=== PATIENT | male | born 1955 | race Caucasian/White ===

== ENCOUNTER 2022-11-06 07:03 | Observation (INO) | payer MEDICARE ==
[~2022-11-06] VITALS: Ht 182.9 cm; Wt 77.1 kg
[2022-11-06] VITALS (10 sets, daily range): BP systolic 135–178; BP diastolic 51–114
--- NOTE | 2022-11-06 07:07 | NUR ---
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
[2022-11-06] MEDS ORDERED: NS 1000ML 1,000 ML ONE (07:22)
[2022-11-06] MEDS ORDERED: ADENOSINE IV ONE (07:23)
[2022-11-06] MEDS ORDERED: LOPRESSER ONE (07:31)
[2022-11-06] MEDS ORDERED: TORADOL IV STA (07:36)
[2022-11-06] MEDS ORDERED: ADENOSCAN IV STA (07:36)
[2022-11-06] MEDS ORDERED: NS 1000ML 1,000 ML IV STA (07:36)
--- NOTE | 2022-11-06 07:42 | ER.PDOC ---
General Chief Complaint: Requesting Medical Care Stated Complaint: ABD PAIN Time seen by MD: 07:40 Source: patient Exam Limitations: no limitations History of Present Illness Initial Comments Abdominal pain since this morning. No nausea or vomiting. No fever or chills. Severity/Quality: moderate, sharpness Radiation: no radiation Associated Symptoms: denies symptoms Exacerbated by: nothing Relieved By: nothing Allergies: Coded Allergies: ciprofloxacin (Unverified Allergy, Unknown, 11/06/22) Home Meds Unable to Obtain Active Prescriptions or Reported Meds Vital Signs First Vital Signs Date Time Temp Pulse Resp B/P (MAP) Pulse Ox O2 Delivery O2 Flow Rate FiO2 11/06/22 07:07 97.9 157 20 11/06/22 07:07 96 11/06/22 07:07 150/92 (111) Room Air* 0 21 Last Vital Signs Date Time Temp Pulse Resp B/P (MAP) Pulse Ox O2 Delivery O2 Flow Rate FiO2 11/06/22 11:11 97.9 87 20 140/85 (103) 96 Room Air* 0 21 Past Medical History Medical History: no pertinent history Family History Significant Family History: no pertinent family hx Social History Smoking: non-smoker Alcohol Use: none Drug Use: none Constitutional: no symptoms reported EENTM: no symptoms reported Respiratory: no symptoms reported Cardiovascular: no symptoms reported Gastrointestinal: see HPI All Other Systems: Reviewed and Negative Physical Exam General Appearance: No Apparent Distress, WD/WN Neck: Non-Tender, Full Range of Motion, Supple, Normal Inspection Respiratory: chest non-tender, lungs clear, normal breath sounds, no respiratory distress, no accessory muscle use Cardiovascular: Normal Peripheral Pulses, Regular Rate, Rhythm, No Edema, No Gallop, No JVD, No Murmur Gastrointestinal: No Organomegaly, No Pulsatile Mass, Hyperactive bowel sounds, Guarding, Tenderness (RLQ) Back: Normal Inspection, No CVA Tenderness, No Vertebral Tenderness Extremities: Normal Range of Motion, Non-Tender, Normal Inspection, No Pedal Edema, No Calf Tenderness, Normal Capillary Refill, Pelvis Stable 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 (11/06/22 07:36) PT (11/06/22 07:36) Ct Abd/Pel With Iv Contrast (11/06/22 07:36) Partial Thromboplastin Time. (11/06/22 07:36) Urinalysis (11/06/22 07:36) Troponin I High Sensitivity (11/06/22 07:36) Creatine Kinase (11/06/22 07:36) 0.9 % Sodium Chloride (Ns 1000ml) (11/06/22 07:36) Ketorolac Tromethamine (Toradol) (11/06/22 07:36) Adenosine (Adenoscan) (11/06/22 07:36) EKG (11/06/22 07:45) EKG (11/06/22 07:45) Ketorolac Tromethamine (Toradol) (11/06/22 07:50) Urine Culture (11/06/22 UNK) Metoprolol Tartrate (Lopresser) (11/06/22 10:33) Vital Signs Date Time Temp Pulse Resp B/P (MAP) Pulse Ox O2 Delivery O2 Flow Rate FiO2 11/06/22 11:11 97.9 87 20 140/85 (103) 96 Room Air* 0 21 11/06/22 10:35 99 171/99 11/06/22 09:40 97.9 99 20 171/99 (123) 96 Room Air* 0 21 11/06/22 08:22 97.9 98 20 178/84 (115) 96 Room Air* 0 21 11/06/22 07:26 97.9 100 20 151/114 (126) 96 Room Air* 0 21 11/06/22 07:07 97.9 157 20 150/92 (111) 96 Room Air* 0 21 11/06/22 07:07 97.9 157 20 96 11/06/22 07:07 97.9 157 20 Administered Medications Medications (Trade) Dose Ordered Sig/Marisabel Route PRN Reason Start Time Stop Time Status Last Admin Dose Admin Adenosine (Adenoscan) 6 mg STAT STAT IV 11/06/22 07:36 11/06/22 07:40 DC 11/06/22 07:23 6 MG Ketorolac Tromethamine (Toradol) 30 mg STAT STAT IV 11/06/22 07:36 11/06/22 07:40 DC 11/06/22 07:49 30 MG Metoprolol Tartrate (Lopresser) 5 mg STAT STAT IVP 11/06/22 10:33 11/06/22 10:34 DC 11/06/22 10:35 5 MG Sodium Chloride 1,000 ml @ 1,200 mls/hr Q50M STAT IV 11/06/22 07:36 11/06/22 08:25 DC 11/06/22 07:23 1,200 MLS/HR Laboratory Tests Test 11/06/22 00:00 11/06/22 07:20 Urine Collection Type RANDOM Urine Color YELLOW Urine Appearance CLEAR Urine Bilirubin NEGATIVE (NEGATIVE) Urine Ketones NEGATIVE (NEGATIVE) Urine Specific [place] 1.015 (1.005-1.030) Urine pH 6.5 (4.5-8.0) Urine Protein 1+ (NEGATIVE) H Urine Urobilinogen 0.2 E.U./dL (0.2) Urine Nitrate NEGATIVE (NEGATIVE) Urine Leukocyte Esterase NEGATIVE (NEGATIVE) Urine Glucose (Auto)(UA) NEGATIVE (NEGATIVE) Urine Blood NEGATIVE (NEGATIVE) Urine RBC NONE SEEN RBC/HPF (NONE Urine WBC 5-10 WBC/HPF (0-2) H Urine Squamous Epithelial Cells FEW (<=FEW) Urine Bacteria FEW (NONE SEEN) H Urine Yeast RARE (NONE SEEN) White Blood Count 13.2 10^3/uL (4.5-11.0) H Red Blood Count 4.44 10^6/uL (4.50-5.90) L Hemoglobin 14.6 g/dL (13.9-16.3) Hematocrit 44.0 % (37.0-53.0) Mean Corpuscular Volume 99.1 fL (78-100) Mean Corpuscular Hemoglobin 32.9 pg (26-34) Mean Corpuscular Hemoglobin Concent 33.2 g/dL (33-36.5) Red Cell Distribution Width 13.1 % (11.5-14.5) Platelet Count 367 10^3/uL (150-400) Mean Platelet Volume 8.6 fL (7.8-11.0) Neutrophils (%) (Auto) 60.8 % (41.0-85.0) Lymphocytes (%) (Auto) 27.5 % (24.0-44.0) Monocytes (%) (Auto) 7.0 % (5.0-12.0) Neutrophils # (Auto) 8.0 10^3/uL (1.8-7.7) H Lymphocytes # (Auto) 3.63 10^3/uL1 (1.0-4.8) Monocytes # (Auto) 0.9 10^3/uL (0.3-0.8) H Absolute Immature Granulocyte (auto 0.07 10^3 u/L (0-2) Absolute Eosinophils (auto) 0.5 10^3/uL (0.0-0.2) H Immature Granulocytes % 0.50 % (0.00-0.50) Eosinophils % 3.9 % (0.0-5.0) Basophils % 0.3 % (0.0-0.2) H Basophils # 0.0 10^3/uL (0.0-0.1) Prothrombin Time 9.3 SEC (9.1-11.5) INR 0.9 Activated Partial Thromboplast Time 23.8 SEC (22.5-33.1) Sodium Level 136 mmol/L (132-145) Potassium Level 4.4 mmol/L (3.6-5.2) Chloride Level 102.0 mmol/L (96-109) Carbon Dioxide Level 29.4 mmol/L (20.0-32) Anion Gap 9.0 Blood Urea Nitrogen 26 mg/dL (7-18) H Creatinine 1.44 mg/dL (0.59-1.40) H Estimated GFR () 59.6 (>/=60) Est GFR (CKD-EPI)(Non-Afr Gambian) 49.2 (>/=60) BUN/Creatinine Ratio 18.0 Glucose Level 125 mg/dL (70-110) H Calcium Level 8.8 mg/dL (8.4-10.5) Total Bilirubin 0.4 mg/dL (0.2-1.0) Aspartate Amino Transferase (AST) 6 U/L (0-35) Alanine Aminotransferase (ALT) 22 U/L (12-78) Alkaline Phosphatase 120 U/L (50-136) Total Creatine Kinase 65 U/L (39-308) Troponin I High Sensitivity 13 ng/L (0-75) Total Protein 7.4 g/dL (6.4-8.2) Albumin 3.9 g/dL (3.4-5.0) Globulin 3.5 Albumin/Globulin Ratio 1.114 Lipase 21 U/L (16-77) Progress Progress CT abdomen/pelvis: Findings of mild bilateral hydronephrosis and bilateral hydroureters right greater than left with marked distention of the urinary bladder. The prostate is enlarged. 2. Mildly displaced acute appearing fractures are seen of the left transverse processes of L1 and L2. 3. A moderate compression fracture is seen of L5 age indeterminate. Further evaluation can be performed with MRI exam. 4. Indeterminate 1.8 cm x 1.5 cm left adrenal soft tissue mass. Further evaluation can be performed with MRI exam of the adrenal glands. Urinalysis see show WBC 5-10 and few bacteria, troponin normal, glucose 125, BUN 26, creatinine 1.44, rest of chemistry is unremarkable. Lipase 21. WBC 13.2. Patient received adenosine and metoprolol. Lanier catheter inserted and about 1200 cc of urine drained into the urine bag. EKG/XRAY/CT/US EKG: nonspecific ST T wave chg EKG Comments: HR 157, SVT #2 EKG: NSR EKG Comments: HR 106, sinus tachycardia ER DEPART Departure Time of Disposition: 11:22 Disposition: 09 ADMITTED INPATIENT Impression: Primary Impression: SVT (supraventricular tachycardia) Additional Impressions: Acute urinary retention Benign prostatic hyperplasia Acute renal failure Adrenal mass, left Condition: Improved Referrals: PCP,UNKNOWN (PCP) PRIMARY CARE PROVIDER Scripts Unable to Obtain Active Prescriptions or Reported Meds Comments Admitted to Dr. Best, spoke with Dr. Fields who will see him as an out patient. Duration or Time Spent with Pa: 60 min Critical Care Note Total Time (mins): 60 Problem Qualifiers Additional Impressions: Benign prostatic hyperplasia Lower urinary tract symptom presence: symptoms present Lower urinary tract symptom detail: urinary retention Qualified Codes: N40.1 - Benign prostatic hyperplasia with lower urinary tract symptoms; R33.8 - Other retention of urine Acute renal failure Acute renal failure type: unspecified Qualified Codes: N17.9 - Acute kidney failure, unspecified MOE LOPEZ MD Nov 06, 2022 07:42
[2022-11-06] MEDS ORDERED: TORADOL ONE (07:50)
[2022-11-06 07:52] LABS: BASOPHIL % 0.3 % (0.0-0.2); EOSINOPHIL # 0.5 10^3/uL (0.0-0.2); EOSINOPHIL % 3.9 % (0.0-5.0); LYMPHOCYTES # 3.63 10^3/uL1 (1.0-4.8); LYMPHOCYTES % 27.5 % (24.0-44.0); MEAN CORP HGB 32.9 pg (26-34); MONOCYTES # 0.9 10^3/uL (0.3-0.8); NEUTROPHILS % 60.8 % (41.0-85.0); PLATELET COUNT 367 10^3/uL (150-400); RED CELL DISTRIBUTION WIDTH 13.1 % (11.5-14.5)
--- NOTE | 2022-11-06 08:06 | PCM.EKG ---
[facility] Test Date: 2022-11-06 Test Time: 07:18:06 Pat Name: KAROL TARIQ Department: Room: 338 Gender: M [employer] Supervisor: HORTENCIA : 1955 Requested By: MOE LOPEZ Order Number: [id number] Reading MD: Moe LOPEZ Measurements Intervals [place] Rate: 157 P: 96 CT: 92 QRS: 84 QRSD: 105 T: 2 QT: 340 QTc: 550 Interpretive Statements Supraventricular tachycardia Borderline right axis deviation Anteroseptal infarct, old Nonspecific T abnormalities, inferior leads No previous ECG available for comparison Electronically Signed On 11-10-2022 7:49:18 CDT by Moe LOPEZ Please click the below link to view image of tracing.
--- NOTE | 2022-11-06 08:06 | PCM.EKG ---
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: HORTENCIA : 1955 Requested By: MOE LOPEZ Order Number: [id number] Reading MD: Moe LOPEZ Measurements Intervals [place] Rate: 106 P: 76 AK: 163 QRS: 78 QRSD: 88 T: 71 QT: 318 QTc: 423 Interpretive Statements Sinus tachycardia Low voltage, precordial leads Probable anteroseptal infarct, old ST elevation, consider inferior injury Compared to ECG 11/06/2022 07:18:06javascript:perform('study_confirm'); Low QRS voltage now present ST (T wave) deviation now present Supraventricular tachycardia no longer present T-wave abnormality no longer present Electronically Signed On 11-10-2022 7:49:34 CDT by Moe LOPEZ Please click the below link to view image of tracing.
[2022-11-06 08:15] LABS: CARBON DIOXIDE 29.4 mmol/L (20.0-32)
[2022-11-06 08:27] LABS: BILIRUBIN,URINE NEGATIVE (NEGATIVE); UROBILINOGEN,URINE 0.2 E.U./dL (0.2)
[2022-11-06 08:34] LABS: YEAST,URINE RARE (NONE SEEN)
--- NOTE | 2022-11-06 09:36 | DIREP ---
PROCEDURE:CT ABDOMEN/PELVIS W/ CONTRAST COMPARISON:None. INDICATIONS:RLQ pain TECHNIQUE:Axial images were created through the abdomen and pelvis with non-ionic intravenous contrast material. No oral contrast was administered. Sagittal and coronal reconstructions were performed from source images. FINDINGS: LUNG BASES:Mild subsegmental atelectasis is seen in the right base. LIVER:Normal. No significant liver lesions are identified. BILIARY:Postcholecystectomy changes are seen. PANCREAS:Normal. No lesion, fluid collection, ductal dilatation, or atrophy. SPLEEN:Normal. No enlargement or focal lesion. ADRENALS:1.8 cm x 1.5 cm left adrenal soft tissue lesion is seen. The right adrenal gland is normal. URINARY TRACT:Mild bilateral hydronephrosis is seen with mild bilateral hydroureters with marked distention of the urinary bladder. AORTA/VASCULAR:Atherosclerotic vascular calcification is seen of the abdominal aorta which is normal in caliber. RETROPERITONEUM:Normal. No mass or adenopathy. BOWEL/MESENTERY:Normal. There is no intestinal obstruction, free fluid, free air or mesenteric inflammatory changes. Normal appendix. A moderate amount of stool is seen throughout the colon. ABDOMINAL WALL:A small fat containing periumbilical abdominal wall hernia is seen. PELVIC ORGANS:The prostate is enlarged. BONES:Postsurgical changes are seen with a decompression screw in the right hip. Mildly displaced acute fractures are seen of the left transverse process of L1 and L2. A moderate compression fracture seen of L5 age indeterminate. OTHER:A small metallic density or foreign body is seen in the subcutaneous tissues of the right buttock. CONCLUSION: 1. Findings of mild bilateral hydronephrosis and bilateral hydroureters right greater than left with marked distention of the urinary bladder. The prostate is enlarged. 2. Mildly displaced acute appearing fractures are seen of the left transverse processes of L1 and L2. 3. A moderate compression fracture is seen of L5 age indeterminate. Further evaluation can be performed with MRI exam. 4. Indeterminate 1.8 cm x 1.5 cm left adrenal soft tissue mass. Further evaluation can be performed with MRI exam of the adrenal glands. Dictated by: Dallas Sofia M.D. On 11/06/2022 at 09:25 AM
[2022-11-06] MEDS ORDERED: LOPRESSER IVP STA (10:33)
--- NOTE | 2022-11-06 10:43 | NUR ---
BRADEN DOCTOR JESSICA ATTEMPTED TO CALL MUKUND FELICIANO, LEFT MESSAGE
--- NOTE | 2022-11-06 10:45 | NUR ---
CHANELLE NAVA MBA ON THE PHONE WITH DOCTOR ROCA AT THIS TIME.
--- NOTE | 2022-11-06 10:53 | NUR ---
BRADEN DOCTOR JESSICA ON THE PHONE WITH DOCTOR FELICIANO AT THIS TIME
--- NOTE | 2022-11-06 11:02 | NUR ---
EAGLE NAVA MBA ON THE PHONE WITH DOCTOR GUILLERMO AT THIS TIME.
--- NOTE | 2022-11-06 11:10 | NUR ---
BED ASSIGNMENT CALLED [facility] FOR BED ASSIGNMENT, PATIENT WILL GO TO ROOM 338- SPOKE TO CHARGE NURSE LEANN KEARNS.
[2022-11-06] MEDS ORDERED: ROCEPHIN 1,000 MG in NS 100ML 100 ML IV STA (11:17)
[2022-11-06] MEDS ORDERED: HNS 1000ML/KCL 20MEQ 1,000 ML IV STA (11:25)
[2022-11-06] MEDS ORDERED: HNS 1000ML/KCL 20MEQ 1,000 ML ONE (11:39)
[2022-11-06] MEDS ORDERED: ROCEPHIN ONE (11:39)
[2022-11-06] MEDS ORDERED: NS 100ML 100 ML IV ONE (11:39)
--- NOTE | 2022-11-06 13:13 | PCM.HP ---
HISTORY AND PHYSICAL Date of Arrival on Unit: Nov 06, 2022 Chief Complaint abd pain HPI 67 year old male presented to the ED for abd pain. He reports the pain started late yesterday to early this morning. The pain is located to the lower portion of the abd, RLQ > LLQ. Pain described as pressure and sharp, rated a 10/10 at worst but now after lima cath and pain medications he reports no pain at this time. upon arrival, he was tachycardic with an elevated BP. WBC was 13.2, BUN was 26 and Cr 1.44. Lactic acid was negative. CT abd/pelvis revealed bilateral hydronephrosis and hydroureters with distention of the bladder. There was also an mildly displaced acute fracture of the left transverse processes of L1 and L2 and a compression fx of L5 (pt reports this is chronic and he has been told he needed to have surgery). Incidentally, there was also a 1.8 x 1.5 cm left adrenal soft tissue mass. With these findings on CT scan, his sodium was 136. A urinary cath was placed and approximately 1200cc of urine was noted. Urine revealed mild UTI. Dr Fields was called and said the pt can f/u with him in the outpatient setting. The pt reports hx of a TURP and chronic incontinence and intermittent retention. While the pt was in the ED however, he had episodes of SVT with a HR of 170bpm. Adenosine was given and dropped the HR to around 105bpm. Then Metoprolol 5mg was given and his HR has been in a normal range. No acute EKG changes after the two medications were given. Pt did experience palpitations but this has now resolved. ER called me to admit the pt to monitor for more SVT's. Pt has had a abd surgery but is not sure what it was for but he has a long vertical scar. He smokes 1PPD, denied EtOH or illicit drug use. He is visiting from [place]. NKDA FULL CODE Allergies Allergies Coded Allergies ciprofloxacin (Unverified Allergy, Unknown, 11/06/22) Scheduled Amoxicillin (Amoxicillin), 1 TAB PO TID Cetirizine Hcl (Zyrtec), 1 TAB PO DAILY, (Reported) Fluticasone/Umeclidin/Vilanter (Trelegy Ellipta 100-62.5-25), 100 MCG IH BID, (Reported) Hydrocodone Bit/Acetaminophen ([place] 10-325), 1 TAB PO Q6, (Reported) Methocarbamol (Methocarbamol), 750 MG PO Q6, (Reported) Tamsulosin Hcl (Flomax), 1 CAP PO DAILY, (Reported) Other Pt history Problems Medical Problems: (1) Acute renal failure Status: Acute ICD Codes: N17.9 - Acute kidney failure, unspecified SNOMED: 34744822 (2) Acute urinary retention Status: Acute ICD Codes: R33.8 - Other retention of urine SNOMED: 999722489 (3) Adrenal mass, left Status: Acute ICD Codes: E27.8 - Other specified disorders of adrenal gland SNOMED: 166298292 (4) Benign prostatic hyperplasia Status: Acute ICD Codes: N40.0 - Benign prostatic hyperplasia without lower urinary tract symptoms SNOMED: 065767954 (5) SVT (supraventricular tachycardia) Status: Acute ICD Codes: I47.1 - Supraventricular tachycardia SNOMED: 9583815 ROS 12 point ROS negative other than stated in HPI VITALS Vital Signs Date Time Temp Pulse Resp B/P (MAP) Pulse Ox O2 Delivery O2 Flow Rate FiO2 11/07/22 10:29 91 17 97 Room Air 11/07/22 08:48 0 21 11/07/22 07:00 98.8 149/94 (112) EXAM General Appearance: No Apparent Distress, WD/WN Neck: Non-Tender, Full Range of Motion, Supple, Normal Inspection Respiratory: chest non-tender, lungs clear, normal breath sounds, no respiratory distress, no accessory muscle use Cardiovascular: Normal Peripheral Pulses, Regular Rate, Rhythm, No Edema, No Gallop, No JVD, No Murmur Gastrointestinal: No Organomegaly, No Pulsatile Mass, Hyperactive bowel sounds, no Guarding, Tenderness in suprapubic region Back: Normal Inspection, No CVA Tenderness, No Vertebral Tenderness Extremities: Normal Range of Motion, Non-Tender, Normal Inspection, No Pedal Edema, No Calf Tenderness, Normal Capillary Refill, Pelvis Stable 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, Alert, Normal Mood/Affect, Oriented x 3, DTR of patellar and achilles 2+ bilaterally, sensations intact in lower extremities Skin: Normal Color, Warm/Dry Lymphatic: No Adenopathy LAB/SHERRI/BBK/PATH Laboratory Tests Test 11/06/22 00:00 11/06/22 07:20 11/06/22 11:37 11/07/22 06:00 Urine Collection Type RANDOM Urine Color YELLOW Urine Appearance CLEAR Urine Bilirubin NEGATIVE (NEGATIVE) Urine Ketones NEGATIVE (NEGATIVE) Urine Specific [place] 1.015 (1.005-1.030) Urine pH 6.5 (4.5-8.0) Urine Protein 1+ (NEGATIVE) Urine Urobilinogen 0.2 E.U./dL (0.2) Urine Nitrate NEGATIVE (NEGATIVE) Urine Leukocyte Esterase NEGATIVE (NEGATIVE) Urine Glucose (Auto)(UA) NEGATIVE (NEGATIVE) Urine Blood NEGATIVE (NEGATIVE) Urine RBC NONE SEEN RBC/HPF (NONE Urine WBC 5-10 WBC/HPF (0-2) Urine Squamous Epithelial Cells FEW (<=FEW) Urine Bacteria FEW (NONE SEEN) Urine Yeast RARE (NONE SEEN) White Blood Count 13.2 10^3/uL (4.5-11.0) 10.4 10^3/uL (4.5-11.0) Red Blood Count 4.44 10^6/uL (4.50-5.90) 3.99 10^6/uL (4.50-5.90) Hemoglobin 14.6 g/dL (13.9-16.3) 13.2 g/dL (13.9-16.3) Hematocrit 44.0 % (37.0-53.0) 38.9 % (37.0-53.0) Mean Corpuscular Volume 99.1 fL (78-100) 97.5 fL (78-100) Mean Corpuscular Hemoglobin 32.9 pg (26-34) 33.1 pg (26-34) Mean Corpuscular Hemoglobin Concent 33.2 g/dL (33-36.5) 33.9 g/dL (33-36.5) Red Cell Distribution Width 13.1 % (11.5-14.5) 13.0 % (11.5-14.5) Platelet Count 367 10^3/uL (150-400) 290 10^3/uL (150-400) Mean Platelet Volume 8.6 fL (7.8-11.0) 8.6 fL (7.8-11.0) Neutrophils (%) (Auto) 60.8 % (41.0-85.0) 69.5 % (41.0-85.0) Lymphocytes (%) (Auto) 27.5 % (24.0-44.0) 21.9 % (24.0-44.0) Monocytes (%) (Auto) 7.0 % (5.0-12.0) 4.0 % (5.0-12.0) Neutrophils # (Auto) 8.0 10^3/uL (1.8-7.7) 7.2 10^3/uL (1.8-7.7) Lymphocytes # (Auto) 3.63 10^3/uL1 (1.0-4.8) 2.28 10^3/uL1 (1.0-4.8) Monocytes # (Auto) 0.9 10^3/uL (0.3-0.8) 0.4 10^3/uL (0.3-0.8) Absolute Immature Granulocyte (auto 0.07 10^3 u/L (0-2) 0.03 10^3 u/L (0-2) Absolute Eosinophils (auto) 0.5 10^3/uL (0.0-0.2) 0.5 10^3/uL (0.0-0.2) Immature Granulocytes % 0.50 % (0.00-0.50) 0.30 % (0.00-0.50) Eosinophils % 3.9 % (0.0-5.0) 4.3 % (0.0-5.0) Basophils % 0.3 % (0.0-0.2) 0.3 % (0.0-0.2) Basophils # 0.0 10^3/uL (0.0-0.1) 0.0 10^3/uL (0.0-0.1) Prothrombin Time 9.3 SEC (9.1-11.5) INR International Normalized Ratio 0.9 Activated Partial Thromboplast Time 23.8 SEC (22.5-33.1) Sodium Level 136 mmol/L (132-145) 134 mmol/L (132-145) Potassium Level 4.4 mmol/L (3.6-5.2) 4.2 mmol/L (3.6-5.2) Chloride Level 102.0 mmol/L (96-109) 102.0 mmol/L (96-109) Carbon Dioxide Level 29.4 mmol/L (20.0-32) 24.2 mmol/L (20.0-32) Anion Gap 9.0 12.0 Blood Urea Nitrogen 26 mg/dL (7-18) 15 mg/dL (7-18) Creatinine 1.44 mg/dL (0.59-1.40) 0.91 mg/dL (0.59-1.40) Estimated GFR () 59.6 (>/=60) 101.2 (>/=60) Est GFR (CKD-EPI)(Non-Afr Cuban) 49.2 (>/=60) 83.6 (>/=60) BUN/Creatinine Ratio 18.0 16.0 Glucose Level 125 mg/dL (70-110) 111 mg/dL (70-110) Calcium Level 8.8 mg/dL (8.4-10.5) 8.6 mg/dL (8.4-10.5) Total Bilirubin 0.4 mg/dL (0.2-1.0) 0.5 mg/dL (0.2-1.0) Aspartate Amino Transf (AST/SGOT) 6 U/L (0-35) 8 U/L (0-35) Alanine Aminotransferase (ALT/SGPT) 22 U/L (12-78) 16 U/L (12-78) Alkaline Phosphatase 120 U/L (50-136) 106 U/L (50-136) Total Creatine Kinase 65 U/L (39-308) Troponin I High Sensitivity 13 ng/L (0-75) Total Protein 7.4 g/dL (6.4-8.2) 6.5 g/dL (6.4-8.2) Albumin 3.9 g/dL (3.4-5.0) 3.2 g/dL (3.4-5.0) Globulin 3.5 3.3 Albumin/Globulin Ratio 1.114 0.969 Lipase 21 U/L (16-77) Lactic Acid Level 1.3 mmol/L (0.5-1.9) Prostate Specific Antigen 3.49 ng/mL (0.13-4.00) IMAGING PROCEDURE:CT ABDOMEN/PELVIS W/ CONTRAST COMPARISON:None. INDICATIONS:RLQ pain TECHNIQUE:Axial images were created through the abdomen and pelvis with non-ionic intravenous contrast material. No oral contrast was administered. Sagittal and coronal reconstructions were performed from source images. FINDINGS: LUNG BASES:Mild subsegmental atelectasis is seen in the right base. LIVER:Normal. No significant liver lesions are identified. BILIARY:Postcholecystectomy changes are seen. PANCREAS:Normal. No lesion, fluid collection, ductal dilatation, or atrophy. SPLEEN:Normal. No enlargement or focal lesion. ADRENALS:1.8 cm x 1.5 cm left adrenal soft tissue lesion is seen. The right adrenal gland is normal. URINARY TRACT:Mild bilateral hydronephrosis is seen with mild bilateral hydroureters with marked distention of the urinary bladder. AORTA/VASCULAR:Atherosclerotic vascular calcification is seen of the abdominal aorta which is normal in caliber. RETROPERITONEUM:Normal. No mass or adenopathy. BOWEL/MESENTERY:Normal. There is no intestinal obstruction, free fluid, free air or mesenteric inflammatory changes. Normal appendix. A moderate amount of stool is seen throughout the colon. ABDOMINAL WALL:A small fat containing periumbilical abdominal wall hernia is seen. PELVIC ORGANS:The prostate is enlarged. BONES:Postsurgical changes are seen with a decompression screw in the right hip. Mildly displaced acute fractures are seen of the left transverse process of L1 and L2. A moderate compression fracture seen of L5 age indeterminate. OTHER:A small metallic density or foreign body is seen in the subcutaneous tissues of the right buttock. CONCLUSION: 1. Findings of mild bilateral hydronephrosis and bilateral hydroureters right greater than left with marked distention of the urinary bladder. The prostate is enlarged. 2. Mildly displaced acute appearing fractures are seen of the left transverse processes of L1 and L2. 3. A moderate compression fracture is seen of L5 age indeterminate. Further evaluation can be performed with MRI exam. 4. Indeterminate 1.8 cm x 1.5 cm left adrenal soft tissue mass. Further evaluation can be performed with MRI exam of the adrenal glands. Dictated by: Dallas Sofia M.D. On 11/06/2022 at 09:25 AM SUMMARY Pt is a 67 year old male found to have urinary retention that required lima cath and incidentally acute SVTs being admitted for arrhythmia and likely an enlarged prostate. ASSESSMENT/PLAN SVT - secondary to pain? monitor closely with telemetry. lopresser prn. No EKG changes. Urinary retention resulting in hydronephrosis - acute on chronic. leave lima ca th in place. Likely secondary to prostate complications UTI - Rocephin Fx of L spine - planning to do surgery in future. JONAH - likely secondary to hydronephrosis DVT and GI prophylaxis zofran prn for nausea pain meds prn for pain scale Obs for monitoring concerning the SVT episodes in ED. Likely discharge in 24 hours with a urine lima cath and he will need to f/u with either his urologist in [place] or Dr Fields. BRE GUILLERMO MD Nov 06, 2022 13:13
[2022-11-06] MEDS ORDERED: APRESOLINE IV PRN (13:30)
[2022-11-06] MEDS ORDERED: TYLENOL PO PRN (13:30)
[2022-11-06] MEDS ORDERED: MORPHINE SULFATE IV PRN (13:30)
[2022-11-06] MEDS ORDERED: LOPRESSER IVP PRN (13:30)
[2022-11-06] MEDS ORDERED: ULTRAM PO PRN (13:30)
[2022-11-06] MEDS ORDERED: FLOMAX PO SCH (13:30)
[2022-11-06] MEDS ORDERED: FLUT1BLS3 IH (14:46)
[2022-11-06] MEDS ORDERED: TAMS-14 PO (14:46)
[2022-11-06] MEDS ORDERED: HYDR-3105 PO (14:46)
[2022-11-06] MEDS ORDERED: CETI10TA77 PO (14:46)
[2022-11-06] MEDS ORDERED: METH-622 PO (14:46)
[2022-11-06] MEDS: HEPARIN SQ SCH ×2 (15:04→21:41)
--- NOTE | 2022-11-06 18:40 | NUR ---
HANDOFF REPORT GIVEN TO [facility]OSEL[facility] RELINQU[facility]ARE
[2022-11-06] MEDS ORDERED: NICOTINE 21 MGPATCH TD SCH (20:30)
[2022-11-06] MEDS ORDERED: DUO 0.5-3(2.5) MG/3 ML IH PRN (22:30)
--- NOTE | 2022-11-06 22:55 | NUR ---
PT RIBBON TIER LIGHT STATING HE IS HAVING TROUBLE BREATHING, V/S STABLE, WHEEZES NOTED UPON ASSESSMENT. PT REQUESTING SOMETHING TO HELP HIM BREATH BETTER, HOSPITALIST NOTIFIED, ORDER RECEIVED, WILL CONTINUE PLAN OF CARE.
[2022-11-07 01:24] VITALS: BP 142/72
[2022-11-07 04:54] VITALS: BP 148/88
[2022-11-07] MEDS: HEPARIN SQ SCH (05:56)
[2022-11-07 06:19] LABS: BASOPHIL % 0.3 % (0.0-0.2); EOSINOPHIL # 0.5 10^3/uL (0.0-0.2); EOSINOPHIL % 4.3 % (0.0-5.0); LYMPHOCYTES # 2.28 10^3/uL1 (1.0-4.8); LYMPHOCYTES % 21.9 % (24.0-44.0); MEAN CORP HGB 33.1 pg (26-34); MONOCYTES # 0.4 10^3/uL (0.3-0.8); NEUTROPHIL # 7.2 10^3/uL (1.8-7.7); NEUTROPHILS % 69.5 % (41.0-85.0); PLATELET COUNT 290 10^3/uL (150-400)
[2022-11-07] MEDS ORDERED: ZOFRAN IV PRN (06:30)
[2022-11-07 06:45] LABS: CARBON DIOXIDE 24.2 mmol/L (20.0-32)
[2022-11-07 07:00] VITALS: BP 149/94
[2022-11-07] MEDS ORDERED: NS 500ML 500 ML IV ONE (08:20)
[2022-11-07] MEDS ORDERED: ROCEPHIN 1,000 MG in NS 100ML 100 ML IV SCH (09:00)
[2022-11-07] MEDS ORDERED: PROTONIX IV IV SCH (09:00)
[2022-11-07] MEDS ORDERED: NICOTINE 21 MGPATCH TD SCH (09:00)
[2022-11-07] MEDS ORDERED: AMOX500T PO (09:35)
--- NOTE | 2022-11-07 09:36 | PRM.DC ---
Discharge Summary Chief Complaint: abd pain HPI and Diagnostic Evaluation Pt seen and examined this morning. He reports his abd pain is resolved. Denied any CP, palpitations, dyspnea, fever. He has been on telemetry since admission and no recurrence of SVT noted. General Appearance: No Apparent Distress, WD/WN Neck: Non-Tender, Full Range of Motion, Supple, Normal Inspection Respiratory: chest non-tender, lungs clear, normal breath sounds, no respiratory distress, no accessory muscle use Cardiovascular: Normal Peripheral Pulses, Regular Rate, Rhythm, No Edema, No Gallop, No JVD, No Murmur Gastrointestinal: No Organomegaly, No Pulsatile Mass, Hyperactive bowel sounds, no Guarding, Tenderness in suprapubic region Back: Normal Inspection, No CVA Tenderness, No Vertebral Tenderness Extremities: Normal Range of Motion, Non-Tender, Normal Inspection, No Pedal Edema, No Calf Tenderness, Normal Capillary Refill, Pelvis Stable Neurologic/Psychiatric: automation qtp tester II-XII NML as Tested, Alert, Normal Mood/Affect, Oriented x 3, DTR of patellar and achilles 2+ bilaterally, sensations intact in lower extremities Skin: Normal Color, Warm/Dry Lymphatic: No Adenopathy Allergies: Coded Allergies: ciprofloxacin (Unverified Allergy, Unknown, 11/06/22) Findings PROCEDURE:CT ABDOMEN/PELVIS W/ CONTRAST COMPARISON:None. INDICATIONS:RLQ pain TECHNIQUE:Axial images were created through the abdomen and pelvis with non-ionic intravenous contrast material. No oral contrast was administered. Sagittal and coronal reconstructions were performed from source images. FINDINGS: LUNG BASES:Mild subsegmental atelectasis is seen in the right base. LIVER:Normal. No significant liver lesions are identified. BILIARY:Postcholecystectomy changes are seen. PANCREAS:Normal. No lesion, fluid collection, ductal dilatation, or atrophy. SPLEEN:Normal. No enlargement or focal lesion. ADRENALS:1.8 cm x 1.5 cm left adrenal soft tissue lesion is seen. The right adrenal gland is normal. URINARY TRACT:Mild bilateral hydronephrosis is seen with mild bilateral hydroureters with marked distention of the urinary bladder. AORTA/VASCULAR:Atherosclerotic vascular calcification is seen of the abdominal aorta which is normal in caliber. RETROPERITONEUM:Normal. No mass or adenopathy. BOWEL/MESENTERY:Normal. There is no intestinal obstruction, free fluid, free air or mesenteric inflammatory changes. Normal appendix. A moderate amount of stool is seen throughout the colon. ABDOMINAL WALL:A small fat containing periumbilical abdominal wall hernia is seen. PELVIC ORGANS:The prostate is enlarged. BONES:Postsurgical changes are seen with a decompression screw in the right hip. Mildly displaced acute fractures are seen of the left transverse process of L1 and L2. A moderate compression fracture seen of L5 age indeterminate. OTHER:A small metallic density or foreign body is seen in the subcutaneous tissues of the right buttock. CONCLUSION: 1. Findings of mild bilateral hydronephrosis and bilateral hydroureters right greater than left with marked distention of the urinary bladder. The prostate is enlarged. 2. Mildly displaced acute appearing fractures are seen of the left transverse processes of L1 and L2. 3. A moderate compression fracture is seen of L5 age indeterminate. Further evaluation can be performed with MRI exam. 4. Indeterminate 1.8 cm x 1.5 cm left adrenal soft tissue mass. Further evaluation can be performed with MRI exam of the adrenal glands. Dictated by: Dallas Sofia M.D. On 11/06/2022 at 09:25 AM Scheduled Amoxicillin (Amoxicillin), 1 TAB PO TID Cetirizine Hcl (Zyrtec), 1 TAB PO DAILY, (Reported) Fluticasone/Umeclidin/Vilanter (Trelegy Ellipta 100-62.5-25), 100 MCG IH BID, (Reported) Hydrocodone Bit/Acetaminophen ([place] 10-325), 1 TAB PO Q6, (Reported) Methocarbamol (Methocarbamol), 750 MG PO Q6, (Reported) Tamsulosin Hcl (Flomax), 1 CAP PO DAILY, (Reported) Consultations Dr Fields recommended outpatient f/u. Procedures Laboratory Tests Test 11/06/22 00:00 11/06/22 07:20 11/06/22 11:37 11/07/22 06:00 Urine Collection Type RANDOM Urine Color YELLOW Urine Appearance CLEAR Urine Bilirubin NEGATIVE (NEGATIVE) Urine Ketones NEGATIVE (NEGATIVE) Urine Specific [place] 1.015 (1.005-1.030) Urine pH 6.5 (4.5-8.0) Urine Protein 1+ (NEGATIVE) Urine Urobilinogen 0.2 E.U./dL (0.2) Urine Nitrate NEGATIVE (NEGATIVE) Urine Leukocyte Esterase NEGATIVE (NEGATIVE) Urine Glucose (Auto)(UA) NEGATIVE (NEGATIVE) Urine Blood NEGATIVE (NEGATIVE) Urine RBC NONE SEEN RBC/HPF (NONE Urine WBC 5-10 WBC/HPF (0-2) Urine Squamous Epithelial Cells FEW (<=FEW) Urine Bacteria FEW (NONE SEEN) Urine Yeast RARE (NONE SEEN) White Blood Count 13.2 10^3/uL (4.5-11.0) 10.4 10^3/uL (4.5-11.0) Red Blood Count 4.44 10^6/uL (4.50-5.90) 3.99 10^6/uL (4.50-5.90) Hemoglobin 14.6 g/dL (13.9-16.3) 13.2 g/dL (13.9-16.3) Hematocrit 44.0 % (37.0-53.0) 38.9 % (37.0-53.0) Mean Corpuscular Volume 99.1 fL (78-100) 97.5 fL (78-100) Mean Corpuscular Hemoglobin 32.9 pg (26-34) 33.1 pg (26-34) Mean Corpuscular Hemoglobin Concent 33.2 g/dL (33-36.5) 33.9 g/dL (33-36.5) Red Cell Distribution Width 13.1 % (11.5-14.5) 13.0 % (11.5-14.5) Platelet Count 367 10^3/uL (150-400) 290 10^3/uL (150-400) Mean Platelet Volume 8.6 fL (7.8-11.0) 8.6 fL (7.8-11.0) Neutrophils (%) (Auto) 60.8 % (41.0-85.0) 69.5 % (41.0-85.0) Lymphocytes (%) (Auto) 27.5 % (24.0-44.0) 21.9 % (24.0-44.0) Monocytes (%) (Auto) 7.0 % (5.0-12.0) 4.0 % (5.0-12.0) Neutrophils # (Auto) 8.0 10^3/uL (1.8-7.7) 7.2 10^3/uL (1.8-7.7) Lymphocytes # (Auto) 3.63 10^3/uL1 (1.0-4.8) 2.28 10^3/uL1 (1.0-4.8) Monocytes # (Auto) 0.9 10^3/uL (0.3-0.8) 0.4 10^3/uL (0.3-0.8) Absolute Immature Granulocyte (auto 0.07 10^3 u/L (0-2) 0.03 10^3 u/L (0-2) Absolute Eosinophils (auto) 0.5 10^3/uL (0.0-0.2) 0.5 10^3/uL (0.0-0.2) Immature Granulocytes % 0.50 % (0.00-0.50) 0.30 % (0.00-0.50) Eosinophils % 3.9 % (0.0-5.0) 4.3 % (0.0-5.0) Basophils % 0.3 % (0.0-0.2) 0.3 % (0.0-0.2) Basophils # 0.0 10^3/uL (0.0-0.1) 0.0 10^3/uL (0.0-0.1) Prothrombin Time 9.3 SEC (9.1-11.5) INR International Normalized Ratio 0.9 Activated Partial Thromboplast Time 23.8 SEC (22.5-33.1) Sodium Level 136 mmol/L (132-145) 134 mmol/L (132-145) Potassium Level 4.4 mmol/L (3.6-5.2) 4.2 mmol/L (3.6-5.2) Chloride Level 102.0 mmol/L (96-109) 102.0 mmol/L (96-109) Carbon Dioxide Level 29.4 mmol/L (20.0-32) 24.2 mmol/L (20.0-32) Anion Gap 9.0 12.0 Blood Urea Nitrogen 26 mg/dL (7-18) 15 mg/dL (7-18) Creatinine 1.44 mg/dL (0.59-1.40) 0.91 mg/dL (0.59-1.40) Estimated GFR () 59.6 (>/=60) 101.2 (>/=60) Est GFR (CKD-EPI)(Non-Afr Venezuelan) 49.2 (>/=60) 83.6 (>/=60) BUN/Creatinine Ratio 18.0 16.0 Glucose Level 125 mg/dL (70-110) 111 mg/dL (70-110) Calcium Level 8.8 mg/dL (8.4-10.5) 8.6 mg/dL (8.4-10.5) Total Bilirubin 0.4 mg/dL (0.2-1.0) 0.5 mg/dL (0.2-1.0) Aspartate Amino Transf (AST/SGOT) 6 U/L (0-35) 8 U/L (0-35) Alanine Aminotransferase (ALT/SGPT) 22 U/L (12-78) 16 U/L (12-78) Alkaline Phosphatase 120 U/L (50-136) 106 U/L (50-136) Total Creatine Kinase 65 U/L (39-308) Troponin I High Sensitivity 13 ng/L (0-75) Total Protein 7.4 g/dL (6.4-8.2) 6.5 g/dL (6.4-8.2) Albumin 3.9 g/dL (3.4-5.0) 3.2 g/dL (3.4-5.0) Globulin 3.5 3.3 Albumin/Globulin Ratio 1.114 0.969 Lipase 21 U/L (16-77) Lactic Acid Level 1.3 mmol/L (0.5-1.9) Prostate Specific Antigen 3.49 ng/mL (0.13-4.00) Hospital Course 67 year old male presented to the ED on 11/06/22 for abd pain. He reported the pain started 1 day prior, located to the lower portion of the abd, RLQ > LLQ. Pain described as pressure and sharp, rated a 10/10 at worst. upon arrival, he was tachycardic with an elevated BP. WBC was 13.2, BUN was 26 and Cr 1.44. Lactic acid was negative. CT abd/pelvis revealed bilateral hydronephrosis and hydroureters with distention of the bladder. There was also an mildly displaced acute fracture of the left transverse processes of L1 and L2 and a compression fx of L5 (pt reports this is chronic and he has been told he needed to have surgery). Incidentally, there was also a 1.8 x 1.5 cm left adrenal soft tissue mass. With these findings on CT scan, his sodium was 136. A urinary cath was placed and approximately 1200cc of urine was noted. Urine revealed mild UTI. Dr Fields was called and said the pt can f/u with him in the outpatient setting. The pt reports hx of a TURP and chronic incontinence and intermittent retention. While the pt was in the ED however, he had episodes of SVT with a HR of 170bpm. Adenosine was given and dropped the HR to around 105bpm. Then Metoprolol 5mg was given and his HR has been in a normal range. No acute EKG changes after the two medications were given. Pt did experience palpitations but none since then. Pt was admitted to monitor for recurrence of SVT and none have been noted on telemetry. Pt has not experienced any palpitations, CP, dyspnea since admission. At this time, he is ready for discharge. Outpatient urology discussed, pt states his urologist in [place] has discussed perm cath or urostomy. He will be discharged with the lima cath until he f/u with urology so that if there is relapse of retention a new lima cath will not have to be placed. He has an allergy to Cipro and will prescribe amoxicillin for UTI and prostatitis coverage. Precautions and ER warnings discussed. He also reports his urologist took him off of flomax so a script will not be started until urology f/u Condition/Impression stable Activity no extraneous activity Diet regular Assessment SVT - secondary to pain? no recurrence over night while on telemetry Urinary retention resulting in hydronephrosis - acute on chronic. leave lima cath in place. Likely secondary to prostate complications. F/u with urology. Amoxicillin coverage (allergy to cipro) UTI - Amoxicillin Fx of L spine - planning to do surgery in future. JONAH - likely secondary to hydronephrosis, resolved. BRE GUILLERMO MD Nov 07, 2022 09:36
[2022-11-07 10:29] VITALS: BP 149/94
--- NOTE | 2022-11-07 11:15 | NUR ---
discharge note iv dc'd, tip intact. verbal and written discharge instructions given, verbalized understanding. to pv via wc in stable condition
== END 2022-11-07 11:15 | disposition home or self-care (01) ==
LOC: ER 07:03 → UNDOADMOB 11:25 → MS 11:25 → EDPENDDISTM 11-07 10:25
PROVIDERS: ADMIT Student in an Organized Health Care Education/Training Program; ATTEND Student in an Organized Health Care Education/Training Program
DX: I47.1 Supraventricular tachycardia (principal); N13.6 Pyonephrosis; N40.1 Benign prostatic hyperplasia with lower urinary tract symptoms; R33.8 Other retention of urine; N17.9 Acute kidney failure, unspecified; E27.9 Disorder of adrenal gland, unspecified; M48.56XA Collapsed vertebra, not elsewhere classified, lumbar region, initial encounter for fracture; N32.89 Other specified disorders of bladder; Z79.899 Other long term (current) drug therapy
CPT/HCPCS: 96372 ×2; 99291; 96365; 96361; 96375 ×2; 87086; 74177; 80053 ×2; 85025 ×2; 36415 ×2; 84484; 87040; 83605; 81001; 82550; 83690; 85610; 85730; 93005; 94640; 96366; 84153; G0378 ×3; J7030 ×2; J0153; J1644 ×2; J1885; J0696 ×2; J3490; Q9965; J7040; J2405; C9113; A9150

== ENCOUNTER 2022-12-02 07:13 | Observation (INO) | payer MEDICARE ==
[2022-11-30 16:01] VITALS: BP 116/78
--- NOTE | 2022-11-30 16:20 | PCM.EKG ---
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
[2022-11-30 16:31] LABS: BASOPHIL # 0.1 10^3/uL (0.0-0.1); BASOPHIL % 0.6 % (0.0-0.2); EOSINOPHIL # 0.3 10^3/uL (0.0-0.2); EOSINOPHIL % 2.7 % (0.0-5.0); LYMPHOCYTES # 3.09 10^3/uL1 (1.0-4.8); LYMPHOCYTES % 31.7 % (24.0-44.0); MEAN CORP HGB 33.2 pg (26-34); MONOCYTES # 0.6 10^3/uL (0.3-0.8); MONOCYTES % 5.6 % (5.0-12.0); NEUTROPHIL # 5.8 10^3/uL (1.8-7.7); NEUTROPHILS % 59.2 % (41.0-85.0); PLATELET COUNT 303 10^3/uL (150-400)
[2022-11-30 16:41] LABS: CARBON DIOXIDE 22.3 mmol/L (20.0-32)
[2022-12-02] VITALS (17 sets, daily range): BP systolic 94–122; BP diastolic 50–79
[~2022-12-02] VITALS: Ht 182.9 cm; Wt 67.1 kg
[~2022-12-02 07:13] MED LIST: AMOX500T PO; CETI10TA77 PO; FLUT1BLS3 IH; HYDR-3105 PO; METH-622 PO; NS 1000ML 1,000 ML IV SCH; NS 100ML 100 ML IV ONE; NS 250ML 250 ML ONE; ROCEPHIN 1,000 MG in NS 100ML 100 ML IV SCH; ROCEPHIN ONE; TAMS-14 PO
[2022-12-02] MEDS ORDERED: SODIUM CHLORIDE IRR BOTTLE IR ONE ×2 (07:28→09:29)
[2022-12-02] MEDS ORDERED: AMINOACETIC ACID IR ONE ×2 (07:29→10:34)
[2022-12-02] MEDS ORDERED: LACTATED RINGERS 1,000 ML ONE (09:54)
[2022-12-02] MEDS ORDERED: XYLOCAINE 2% 5ML VIAL ONE (09:55)
[2022-12-02] MEDS ORDERED: ZOFRAN ONE (09:55)
[2022-12-02] MEDS ORDERED: DIPRIVAN 100 ML IV ONE (09:55)
[2022-12-02] MEDS ORDERED: DECADRON ONE (09:55)
[2022-12-02] MEDS ORDERED: VERSED ONE (09:58)
[2022-12-02] MEDS ORDERED: LACTATED RINGERS 1,000 ML IV SCH (11:00)
[2022-12-02] MEDS ORDERED: PHENERGAN IV PRN ×2 (11:00)
[2022-12-02] MEDS ORDERED: NORCO 7.5MG PO PRN ×2 (11:00)
[2022-12-02] MEDS ORDERED: DEMEROL IV PRN (11:00)
--- NOTE | 2022-12-02 13:22 | OPH ---
DATE OF SURGERY: 12/02/2022 DICTATOR NAME: Cipriano Fields MD PREOPERATIVE DIAGNOSIS: Obstructive residual prostatic hyperplasia. FINAL DIAGNOSIS: Obstructive residual prostatic hyperplasia. PROCEDURE: Transurethral resection of the residual obstructive prostatic hyperplasia. DESCRIPTION OF PROCEDURE: The patient was brought to the cystoscopy room and he was placed in the sitting position and after doing a low spinal anesthesia, the patient was placed in supine position on the cystoscopy table. After several minutes when the patient cannot feel any sensation in both legs, the patient was placed in the lithotomy position. The Lanier catheter was removed and the genitalia was then prepped and draped aseptically in the usual manner. First, a 26-Colombian curved dilator was inserted per urethra up to the bladder and after dilatation of the urethra, the curved sound was removed and then a 26-Colombian resectoscope sheath was then inserted per urethra up to the bladder. With the use of the foroblique lens, the prostatic urethra was visualized and there was some obstructive prostatic hyperplasia near the verumontanum, and also at the lateral lobes and the roof. The rest of the bladder was congested. No tumor, no calculi, no ulcerations seen. TUR of the prostate was started on the lateral lobes including the roof, including the obstructive prostatic tissues adjacent to the veru montanum. After adequate resection of the prostatic obstructive hyperplasia near the veru and after adequate resection also of the residual prostate in the lateral lobes and the roof and after adequate hemostasis, all the tissue chips were then evacuated from the bladder. After that, the posterior urethra was again visualized and there was no more obstruction noted and all the tissue chips were evacuated from the bladder. Bladder was irrigated, return flow was clear. The procedure was terminated. The instrument was removed and a 22-Colombian Lanier catheter was inserted per urethra up to the bladder. The balloon was inflated with 30 mL of water and the catheter was again irrigated, return flow was clear. The patient was then put back in supine position and the procedure was terminated. The patient was transferred to the recovery room in stable condition. Cipriano Fields MD DR: CARRIE/BROOKE/JEMAL/DEEPTHI TID: [id number] RECEIPT: [id number] ZARI
[2022-12-02] MEDS ORDERED: NS 3000ML IRR IR ONE ×6 (13:44→22:17)
[2022-12-02] MEDS ORDERED: NICOTINE 21 MGPATCH TD ONE (21:48)
[2022-12-02] MEDS: NICOTINE 21 MGPATCH TD SCH (21:49)
[2022-12-02] MEDS: VENTOLIN IH PRN (21:57)
[2022-12-03 00:04] VITALS: BP 110/93
[2022-12-03] MEDS: DEMEROL IV PRN ×2 (00:17→15:12)
[2022-12-03 04:03] VITALS: BP 114/78
[2022-12-03] MEDS: NORCO 7.5MG PO PRN ×2 (04:38→09:22)
[2022-12-03 05:34] LABS: MEAN CORP HGB 33.3 pg (26-34); RED CELL DISTRIBUTION WIDTH 13.1 % (11.5-14.5)
[2022-12-03 05:39] LABS: CARBON DIOXIDE 23.5 mmol/L (20.0-32)
[2022-12-03 07:55] VITALS: BP 117/68
[2022-12-03] MEDS: NICOTINE 21 MGPATCH TD SCH (08:13)
[2022-12-03] MEDS: ROCEPHIN 1,000 MG in NS 100ML 100 ML IV SCH (08:13)
[2022-12-03 11:56] VITALS: BP 117/92
[2022-12-03 15:55] VITALS: BP 121/57
[2022-12-03] MEDS ORDERED: METHOCARBAMOL PO PRN (20:30)
[2022-12-03] MEDS ORDERED: PROTONIX PO ONE (20:30)
[2022-12-03 21:11] VITALS: BP 128/77
[2022-12-03] MEDS ORDERED: MILK OF MAGNESIA ONE (23:51)
--- NOTE | 2022-12-03 23:54 | PNH ---
DATE: 12/03/2022 DICTATOR NAME: Cipriano Fields MD SUBJECTIVE: This is the postop day #1. The patient had a fever on first day yesterday and today the patient is afebrile. Urine is clear and vital signs are stable. PLAN: We will discontinue the CBI today and discontinue the IV and change to Hep-Lock. The patient is doing well. Cipriano Fields MD DR: CARRIE/JANICE/ELIZABETH TID: [id number] RECEIPT: [id number]
[2022-12-04] MEDS ORDERED: MYLANTA PO PRN
[2022-12-04 00:37] VITALS: BP 140/47
[2022-12-04 07:46] LABS: BASOPHIL # 0.1 10^3/uL (0.0-0.1); BASOPHIL % 0.6 % (0.0-0.2); EOSINOPHIL # 0.6 10^3/uL (0.0-0.2); EOSINOPHIL % 6.3 % (0.0-5.0); LYMPHOCYTES # 2.64 10^3/uL1 (1.0-4.8); LYMPHOCYTES % 30.1 % (24.0-44.0); MEAN CORP HGB 33.3 pg (26-34); MONOCYTES # 0.5 10^3/uL (0.3-0.8); MONOCYTES % 5.6 % (5.0-12.0); NEUTROPHILS % 57.2 % (41.0-85.0); PLATELET COUNT 258 10^3/uL (150-400)
[2022-12-04] MEDS: VENTOLIN IH PRN (07:53)
[2022-12-04] MEDS ORDERED: PROTONIX PO SCH (09:00)
[2022-12-04] MEDS: NICOTINE 21 MGPATCH TD SCH (09:47)
[2022-12-04] MEDS: ROCEPHIN 1,000 MG in NS 100ML 100 ML IV SCH (09:47)
[2022-12-04 10:53] VITALS: BP 121/100
[2022-12-04] MEDS: NORCO 7.5MG PO PRN (13:20)
[2022-12-04] MEDS ORDERED: CIPR500T86 PO (13:26)
[2022-12-04] MEDS ORDERED: TRAM50TA PO (13:26)
[2022-12-04 13:35] VITALS: BP 124/68
--- NOTE | 2022-12-04 16:05 | NUR ---
RX'S RX'S CALLED INTO [facility] AT THIS TIME.
--- NOTE | 2022-12-04 18:06 | NUR ---
DISCHARGE DISCHARGE INSTRUCTIONS GIVEN. PT VERBALIZED UNDERSTANDING OF MEDICATIONS AND FOLLOW-UP APPOINTMENT. IV DC'D, TIP INTACT. PT LEFT UNIT VIA WHEELCHAIR X 1 NURSE ASSIST TO PERSONAL VEHICLE.
[2022-12-04 18:08] VITALS: BP 124/68
--- NOTE | 2022-12-04 21:22 | PNH ---
DATE: 12/04/2022 DICTATOR NAME: Cipriano Fields MD SUBJECTIVE: This is a postop day #2. The patient is afebrile. Urine is clear. We will remove the Lanier catheter today and we will observe for voiding. He will probably discharge later on this afternoon. Cipriano Fields MD DR: MITCH TID: [id number] RECEIPT: [id number]
== END 2022-12-04 18:05 | disposition home or self-care (01) ==
LOC: SDC 07:13 → MS 12:10
PROVIDERS: ADMIT Urology; ATTEND Urology
DX: N40.1 Benign prostatic hyperplasia with lower urinary tract symptoms (principal); N13.8 Other obstructive and reflux uropathy
CPT/HCPCS: 85025 ×2; 36415 ×3; 80048; 85610; 85730; 93005; 52601; 94640; 96365; 96375; 96376; 85027; 80051; 96366; G0378 ×4; J7050; J7030; J7120 ×2; A4217 ×2; J1100; J7613 ×2; J2001; J2405; J2250; J0696 ×3; J2175; J3490; J2550